=== PATIENT | female | born 1950 | race Caucasian/White ===

== ENCOUNTER → 2018-08-13 | Outpatient (CLI) | payer MEDICARE, OTHER ==
[2018-08-13 11:05] LABS: Anion Gap 8.5 mmol/L (4.00-12.00); Calcium 10.1 mg/dL (8.7-10.3); Carbon Dioxide 28.5 mmol/L (21.6-31.8); LDL Cholesterol,Calculated 191.8 mg/dL (0.0-131.0); Potassium 4.2 mmol/L (3.5-5.5); VLDL Calculation 26.2 mg/dL (5.00-40.00)
[2018-08-13 13:16] LABS: Hemoglobin A1C 5.6 % (4.0-6.0)
== END ==
LOC: LABWHC1 07:06
PROVIDERS: ATTEND Nurse Practitioner Adult Health
DX: I10 Essential (primary) hypertension (principal); E78.5 Hyperlipidemia, unspecified; E03.9 Hypothyroidism, unspecified; Z79.899 Other long term (current) drug therapy
CPT/HCPCS: 36415; 80048; 80061; 83036; 84443

== ENCOUNTER → 2020-10-04 | Outpatient (CLI) | payer MEDICARE ==
--- NOTE | 2020-10-05 13:34 | MM ---
Reason for exam: screening (asymptomatic). Last mammogram was performed 10 years and 10 months ago. History: Patient is postmenopausal and is nulliparous. Took hormonal contraceptives for 15 years. Physical Findings: A clinical breast exam by your physician is recommended on an annual basis and results should be correlated with mammographic findings. MG Screening Mammo w CAD Bilateral CC and MLO view(s) were taken. Prior study comparison: December 02, 2009, mammogram. There are scattered fibroglandular densities. Finding #1: There is a 2 mm equal density (isodense), circumscribed oval mass in the upper outer quadrant, posterior position of the right breast. Finding #2: There are typically benign calcifications in both breasts. ASSESSMENT: Incomplete: need additional imaging evaluation, BI-RAD 0 RECOMMENDATION: Ultrasound of the right breast. [facility] will attempt to contact patient to return for ultrasound.
== END | disposition home or self-care (01) ==
LOC: RADMAMWWP 09:01
PROVIDERS: ATTEND Internal Medicine
DX: Z12.31 Encounter for screening mammogram for malignant neoplasm of breast (principal)
CPT/HCPCS: 77067

== ENCOUNTER 2020-10-06 05:58 | Day surgery (SDC) | payer MEDICARE ==
[2020-10-03 15:44] VITALS: BMI 36.9
[~2020-10-06 05:58] MED LIST: DEXAMETHASONE SOD PHOSPHATE 4 MG/ML 1 ML VIAL IV ONE; HYDROmorphone 0.5 MG/0.5 ML SYRINGE IVP PRN; LACTATED RINGERS 1,000 ML IV SCH; LIDOCAINE 1% (10MG/ML) FOR IV START INTRADERMA PRN; MIDAZOLAM 2 MG/2 ML VIAL IV PRN; ONDANSETRON 4 MG/2 ML VIAL IVP ONE; fentaNYL (PF) 50 MCG/ML 2 ML AMP IVP PRN
[2020-10-06] MEDS ORDERED: PHENYLEPHRINE-0.9% NACL SYG 1,000 MCG/10 ML SYRINGE ONE (07:24)
[2020-10-06] MEDS ORDERED: MIDAZOLAM 2 MG/2 ML VIAL ONE (07:24)
[2020-10-06] MEDS ORDERED: ROPIVACAINE 5 MG/ML 30 ML VIAL ONE (07:24)
[2020-10-06] MEDS ORDERED: DEXAMETHASONE SOD PHOSPHATE 4 MG/ML 1 ML VIAL ONE (07:24)
[2020-10-06] MEDS ORDERED: fentaNYL (PF) 50 MCG/ML 2 ML AMP ONE (07:24)
[2020-10-06] MEDS ORDERED: SUCCINYLCHOLINE CHLORIDE 100 MG/5 ML SYR IV ONE (07:24)
[2020-10-06] MEDS ORDERED: PROPOFOL 10 MG/ML 20 ML VIAL IV ONE (07:24)
[2020-10-06] MEDS ORDERED: LIDOCAINE 1% INJ 10MG/ML (20 ML MDV) ONE (07:24)
[2020-10-06] MEDS ORDERED: ROCURONIUM 10 MG/ML (5 ML VIAL) IV ONE (07:24)
--- NOTE | 2020-10-06 08:56 | P.ANPRN ---
Procedure Note - Anesthesia - Nerve Block Performed Left Popliteal Single Time Out Performed: Yes Date of Procedure: 10/06/20 Procedure Start Time: 06:51 Procedure Stop Time: 06:55 Location of Patient: PreOp Indication: Acute Post-Operative Pain, Requested by Surgeon Sedation Type: Sedate with meaningful contact maintained Preparation: Sterile Prep Position: Right Lateral Needle Types: Facet Ultrasound used to visualize needle placement: Yes Ultrasound used to observe medication spread: Yes Blood Aspirated: No Pain Paresthesia on Injection Noted: No Resistance on Injection: Normal Image Stored and Saved: Yes Events: Uneventful and Well Tolerated (ropi .5% 20cc plus dexamethasone 4mg)
--- NOTE | 2020-10-06 08:58 | P.ANPRN ---
Procedure Note - Anesthesia - Nerve Block Performed Left Saphenous/Obturator Single Time Out Performed: Yes Date of Procedure: 10/06/20 Procedure Start Time: 06:56 Procedure Stop Time: 07:01 Location of Patient: PreOp Indication: Acute Post-Operative Pain, Requested by Surgeon Sedation Type: Sedate with meaningful contact maintained Preparation: Sterile Prep Position: Supine Needle Types: Pajunk (ropi .5% 20 cc plus dexamethasone 4mg)
[2020-10-06 09:09] VITALS: TEMP 96.8
--- NOTE | 2020-10-06 09:12 | P.OP ---
Preoperative Diagnosis: 1. Left Achilles tendinitis 2. Gastroc equinus left leg 3. Calcaneal spur left Postoperative Diagnosis: 1. Same 2. Same 3. Same Procedure(s) Performed: 1. Secondary repair with reattachment of the left Achilles tendon 2. Gastroc recession left leg 3. Excision of calcaneal spur left Implants: (4) 4.75 swivel lock anchors Anesthesia: REUBENA Surgeon: Lauro Martinez Estimated Blood Loss (ml): 2 Pathology: none sent Condition: stable Disposition: PACU Indications for Procedure: Achilles tendinitis with insertional calcification unresponsive to conservative therapy Description of Procedure: Patient was brought into the operative room. The patient was induced and placed under general anesthetic. The patient was then placed onto the operating room table in the prone position, with appropriate padding a below-knee bony prominences as well as in the thoracic area. When anesthesia was satisfied with position of the patient, a well-padded tourniquet was placed on the left thigh. Left leg was prepped and draped usual manner. The left leg was exsanguinated with an Esmarch bandage and the tourniquet inflated to 250 mmHg while the knee was held slightly flexed. Attention directed first to the posterior aspect leg just distal to the gastroc muscle belly. Midline incision was made and deepened down to the subcutaneous tissue careful to identify voiding retract the neurovascular structures and cauterize any bleeding vessels. Dissection was continued bluntly down to level of the deep fascia overlying the gastroc aponeurosis. The fascia was incised and bluntly freed from the underlying aponeurosis both medial and lateral. A transverse incision was made to the aponeurosis taking care to minimize trauma to underlying muscle belly. Once completed ankle was dorsiflexed and a 2 cm gap but developed between the ends of the aponeurosis indicate a full release. The wound is irrigated thoroughly with antibiotic saline. Subcu is closed with 3-0 Monocryl skin closure with bridget. Attention then directed over the posterior aspect of the Achilles tendon near the calcaneal insertion a linear incision was made along the medial aspect of the tendon was deepened on the saphenous tissue careful to identify voiding retract any neurovascular structures and cauterize any bleeding vessels. Blunt dissection was continued down to the tendon which point the skin and subcutaneous layer was dissected a full layer of the tendon to expose the attachment. The Achilles was released from the attachment. Full gold layer the calcaneus and retracted proximally osteotome was used to remove the large posterior calcaneal exostosis to the area was flat and there was exposed medullary bone. There was palpated to make sure that the entire exostosis was removed and then all the areas were smoothed with a rasp. The tendon was grasped and with the ankle held at 90 was distracted distally to the attachment point the calcaneus which point a emmanuelle was made at the distal edge of the Achilles onto the calcaneus. Drill holes were then made medial lateral both distal and proximal to the line parsley 1 cm from the line. Once drilling was completed each hole was tapped. An Arthrex 4.75 swivel lock anchor was inserted to the proximal drill holes first and advanced to proper depth. While holding the tendon near the reference line in the ankle in 90 the suture attached the 4.75 anchor was then fed through the Achilles tendon at the same level. [place] were cut so that there were 4 suture arms. Utilizing one suture from each anchor fed through another 7.5 swivel lock and then aligned with the distal drill holes and impacted into the holes and advanced to lock the suture in place and locked the tendon down. This was repeated on the opposite side. Once complete the construct was tested for strength and taken through range of motion and there was no abnormal movement at the attachment site. Wound was then irrigated with antibiotic saline. Subcutaneous closure was done with 4-0 Monocryl and skin closure done with bridget An Arthrex jumpstart dressing was applied over both incisions and a bulky dry dressings applied to the left leg and ankle. The tourniquet was released and capillary refill return to all digits of the left foot. The patient was placed in a well-padded, well molded, plaster posterior mold sugar tong splint which was Lunder dry while holding the ankle at 90. Once dry the patient was rolled back onto the transfer table at which point anesthesia was reversed. The patient was taken recovery with vital signs stable
[2020-10-06] MEDS ORDERED: LACTATED RINGERS 1,000 ML IV ONE (09:32)
[2020-10-06 10:18] VITALS: BP 138/79; PULSE 67; RESP 18
== END 2020-10-06 10:48 | disposition home or self-care (01) ==
LOC: OR 05:58
PROVIDERS: ATTEND Podiatrist
DX: M76.62 Achilles tendinitis, left leg (principal); M21.862 Other specified acquired deformities of left lower leg; M77.32 Calcaneal spur, left foot; I10 Essential (primary) hypertension; E78.5 Hyperlipidemia, unspecified; E03.9 Hypothyroidism, unspecified; E66.9 Obesity, unspecified; E78.00 Pure hypercholesterolemia, unspecified; R26.81 Unsteadiness on feet; Z79.82 Long term (current) use of aspirin; Z79.890 Hormone replacement therapy; Z79.899 Other long term (current) drug therapy; Z97.3 Presence of spectacles and contact lenses; Z98.890 Other specified postprocedural states; Z90.89 Acquired absence of other organs; Z90.49 Acquired absence of other specified parts of digestive tract; Z68.36 Body mass index [BMI] 36.0-36.9, adult; Z79.1 Long term (current) use of non-steroidal anti-inflammatories (NSAID); Z79.52 Long term (current) use of systemic steroids; Z83.3 Family history of diabetes mellitus; Z82.49 Family history of ischemic heart disease and other diseases of the circulatory system
CPT/HCPCS: 27654; 27687; 28119; 64447; 64445; 76942; C1713; J2250; J1100; J0690; J2405; J2001; J3010; J2795; J2370; J0330; J2704; 64450

== ENCOUNTER → 2020-10-27 | Outpatient (CLI) | payer MEDICARE ==
--- NOTE | 2020-10-30 08:23 | USB ---
Reason for exam: additional evaluation requested from abnormal screening. History: Patient is postmenopausal and is nulliparous. Took hormonal contraceptives for 15 years. Physical Findings: Nurse did not find any significant physical abnormalities on exam. US Breast Workup Limited RT Right limited breast ultrasound including focal area of concern, retroareolar and axilla demonstrates duct ectasia at 11 o'clock and a 1.8 x 1.4 x 0.7cm lymph node at the axilla. Scanned 9-12 o'clock. These results were verbally communicated with the patient and result sheet given to the patient on 10/27/20. ASSESSMENT: Probably benign, BI-RAD 3 RECOMMENDATION: Follow-up diagnostic mammogram of the right breast in 6 months.
== END | disposition home or self-care (01) ==
LOC: RADUSWWP 14:53
PROVIDERS: ATTEND Internal Medicine
DX: Z78.0 Asymptomatic menopausal state (principal)

== ENCOUNTER → 2021-04-03 | Outpatient (CLI) | payer MEDICARE ==
--- NOTE | 2021-04-03 13:40 | XR ---
EXAMINATION TYPE: XR knee complete RT DATE OF EXAM: 04/03/2021 CLINICAL HISTORY: Pain. Popping injury. TECHNIQUE: Three views of the right knee are obtained. COMPARISON: None. FINDINGS: There is no acute fracture/dislocation evident in right knee. Moderate narrowing and spurr ing medial tibial femoral compartment. Qmtzuadi-[id number] narrowing and spurring patellofemoral montez rtment. Additional spur anterior superior patellar distal quadriceps tendon attachment. The overlying soft tissue appears unremarkable. IMPRESSION: As above.
== END | disposition home or self-care (01) ==
LOC: RADXRMAIN 13:10
PROVIDERS: ATTEND Nurse Practitioner Adult Health
DX: M25.561 Pain in right knee (principal)

== ENCOUNTER → 2022-01-30 | Outpatient (CLI) | payer MEDICARE ==
--- NOTE | 2022-01-31 08:51 | MM ---
Reason for Exam: Screening (asymptomatic). Last mammogram was performed 1 year(s) and 4 month(s) ago. Patient History: Menarche at age 15. Patient has no children. Postmenopausal. Patient used Hormonal Contraceptives for 15 years. Risk Values: Stephany 5 year model risk: 1.9%. NCI Lifetime model risk: 5.9%. Prior Study Comparison: 12/02/2009 Screening Mammogram, Unknown. 10/04/2020 Bilateral Screening Mammogram, [facility]. 10/27/2020 Right Diagnostic Ultrasound, [facility]. Tissue Density: There are scattered fibroglandular densities. Findings: Analyzed By CAD. There is no suspicious group of microcalcifications or new suspicious mass in either breast. Overall Assessment: Negative, BI-RAD 1 Management: Screening Mammogram of both breasts in 1 year. A clinical breast exam by your physician is recommended on an annual basis and results should be correlated with mammographic findings. Electronically signed and approved by: Juan Carlos Farmer M.D. Radiologis
== END | disposition home or self-care (01) ==
LOC: RADMAMWWP 07:36
PROVIDERS: ATTEND Family Medicine
DX: Z12.31 Encounter for screening mammogram for malignant neoplasm of breast (principal); Z78.0 Asymptomatic menopausal state
CPT/HCPCS: 77067

== ENCOUNTER → 2022-07-23 | Outpatient (CLI) | payer MEDICARE ==
[2022-07-23 09:13] LABS: INR 0.9 (<1.2); Partial Thromboplastin Time 23.9 sec (22.0-30.0); Prothrombin Time 9.9 sec (9.0-12.0)
[2022-07-23 14:28] LABS: Basophils # (A) 0.05 X 10*3/uL (0.00-0.10); Basophils % (A) 0.8 %; Eosinophils # (A) 0.25 X 10*3/uL (0.04-0.35); Eosinophils % (A) 3.8 %; HCT 41.3 % (37.2-46.3); HGB 13.3 g/dL (12.0-15.0); Immature Grans, Automated 0.2 %; Lymphocytes % (A) 30.3 %; MCH 31.3 pg (27.0-32.0); MCHC 32.2 g/dL (32.0-37.0); MCV 97.2 fL (80.0-97.0); Mean Platelet Volume 11.4 fL (9.5-12.2); Monocytes # (A) 0.49 X 10*3/uL (0.20-1.00); Monocytes % (A) 7.4 %; NRBC Per 100 WBC 0 /100 WBCS (0.0-0.0); Neutrophils # (A) 3.79 X 10*3/uL (1.80-7.70); Neutrophils % (A) 57.5 %; Platelet Count 217 X 10*3/uL (140-440); RBC 4.25 X 10*6/uL (4.10-5.20); WBC 6.59 X 10*3/uL (4.50-10.00)
[2022-07-23 14:44] LABS: African American GFR (CKD) 87.2 (60.0-200.0); Anion Gap 12.8 mmol/L (10.00-18.00); BUN/Creat Ratio 22.63 Ratio (12.00-20.00); Blood Urea Nitrogen 18.1 mg/dL (9.0-27.0); Calcium 10.7 mg/dL (8.7-10.3); Carbon Dioxide 26.2 mmol/L (20.0-27.5); Non-African American GFR(CKD) 75.2 (60.0-200.0); Potassium 4.4 mmol/L (3.5-5.5)
== END | disposition home or self-care (01) ==
LOC: LABPAT 08:08
PROVIDERS: ATTEND Orthopaedic Surgery
DX: Z01.812 Encounter for preprocedural laboratory examination (principal); Z22.322 Carrier or suspected carrier of Methicillin resistant Staphylococcus aureus; M17.12 Unilateral primary osteoarthritis, left knee
CPT/HCPCS: 80048; 85025; 85610; 85730; 87070; 93005

== ENCOUNTER 2022-08-06 08:17 | Day surgery (SDC) | payer MEDICARE ==
[2022-08-01 12:06] VITALS: BMI 36.6
--- NOTE | 2022-08-05 08:38 | P.HPOR ---
History of Present Illness H&P Date: 08/05/22 Chief Complaint: Left knee pain Patient is a 71-year-old retired female who presents with progressive left knee pain for the past several years worsening recently. She's having pain with weightbearing activities. She does stiffness and swelling. She's tried medications along with injections without much relief. She notes daily pain that limits her. She has also been working on weight loss. Review of Systems As per HPI Past Medical History Past Medical History: Hyperlipidemia, Hypertension, Osteoarthritis (OA), Thyroid Disorder History of Any Multi-Drug Resistant Organisms: None Reported Past Surgical History: Cholecystectomy, Orthopedic Surgery, Tonsillectomy Additional Past Surgical History / Comment(s): left knee arthroscopy, left ankle, COLONOSCOPY, Past Anesthesia/Blood Transfusion Reactions: No Reported Reaction Smoking Status: Never smoker - Past Family History Mother Family Medical History: Cancer Father Family Medical History: Cancer Medications and Allergies Home Medications Medication Instructions Recorded Confirmed Type Aspirin [Adult Low Dose Aspirin EC] 81 mg PO DAILY 10/03/20 08/01/22 History Atorvastatin [Lipitor] 40 mg PO DAILY 10/03/20 08/01/22 History Levothyroxine Sodium [Synthroid] 100 mcg PO DAILY 10/03/20 08/01/22 History Lisinopril-Hctz 20-12.5 mg 1 tab PO DAILY 10/03/20 08/01/22 History [Zestoretic 20-12.5] Multivitamins, Thera [Multivitamin 1 tab PO DAILY 10/03/20 08/01/22 History (formulary)] Ergocalciferol [Vitamin D2 (1250 1,250 mcg PO MO 08/01/22 08/01/22 History Mcg = 08895 Iu)] Naproxen Sodium [Aleve] 220 mg PO DAILY 08/01/22 08/01/22 History Nebivolol HCl 10 mg PO HS 08/01/22 08/01/22 History Allergies Allergy/AdvReac Type Severity Reaction Status Date / Time No Known Allergies Allergy Verified 08/01/22 11:49 Physical Examination - Knee left Appearance: effusion Effusion grade: grade 1 Varus alignment in stance: 5 degrees Tenderness with palpation: medial Pain: with flexion Gait: limping ROM: extension: -10 degrees ROM: flexion: 80 degrees Crepitus with motion: Yes Strength: extension: 5/5 Strength: flexion: 5/5 Meniscal tests: medial meniscal tests: positive, medial joint line pain: positive Results The patient is a well-developed well-nourished female approximately 5 foot 9, 250 pounds endomorphic habitus. HEENT exam is nonfocal, neck supple. She has painless passive motion of her left hip. Straight leg raise is negative. Her distal neurovascular appears intact in left lower extremity. - Diagnostic results Knee x-ray: image reviewed (3 views of the left knee obtain the office show severe medial compartment narrowing with [id number]-ol-[id number] changes and subchondral sclerosis.) Assessment and Plan Assessment: Left knee severe medial and patellofemoral compartment osteoarthrosis Plan: I talked with the patient length regarding her condition along with treatment options. At this point she remains quite limited because of pain related to her osteoarthrosis despite previous conservative measures. After thorough discussion she has proceed with surgery. We will plan to proceed with left total knee arthroplasty. Risks and benefits were discussed at length in layman's terms. We will institute DVT prophylaxis postoperatively.
[~2022-08-06 08:17] MED LIST changes: +ACETAMINOPHEN TAB 500 MG TAB PO PRN; -LACTATED RINGERS 1,000 ML IV SCH; +MELOXICAM 7.5 MG TAB PO PRN; +TRANEXAMIC ACID IN NACL,ISO-OS 1,000 MG in SALINE 1 100ML.BAG IVPB PRN; -fentaNYL (PF) 50 MCG/ML 2 ML AMP IVP PRN
[2022-08-06] MEDS: LACTATED RINGERS 1,000 ML IV SCH (09:00)
[2022-08-06] MEDS ORDERED: fentaNYL (PF) 50 MCG/1 ML VIAL IVP ONE (09:08)
[2022-08-06] MEDS ORDERED: ROPIVACAINE 0.2%-NS ON-Q PUMP 1,090 MG, EMPTY PAIN BALL 1 EACH MISCELLANE PRN (09:35)
--- NOTE | 2022-08-06 09:37 | P.ANPRN ---
Procedure Note - Anesthesia - Nerve Block Performed Left Adductor Canal Infusion Time Out Performed: Yes Date of Procedure: 08/06/22 Procedure Start Time: :07 Procedure Stop Time: 09:16 Location of Patient: PreOp Indication: Requested by Surgeon Specifically requested for management of pain by DrStephy: Iglesia Lisa Sedation Type: Sedate with meaningful contact maintained Preparation: Sterile Prep, Sterile Dressing Position: Supine Catheter: Indwelling Needle Types: Pajunk Needle Gauge: 18 Ultrasound used to visualize needle placement: Yes Ultrasound used to observe medication spread: Yes Injectate: 0.5% Ropivacaine (see comment for volume) (15 ml + 15 ml NS) Blood Aspirated: No Pain Paresthesia on Injection Noted: No Resistance on Injection: Normal Image Stored and Saved: Yes Events: Uneventful and Well Tolerated
--- NOTE | 2022-08-06 09:39 | P.ANPRN ---
Procedure Note - Anesthesia - Nerve Block Performed Left iPack Single Time Out Performed: Yes Date of Procedure: 08/06/22 Procedure Start Time: : Procedure Stop Time: : Location of Patient: PreOp Indication: Requested by Surgeon Specifically requested for management of pain by DrStephy: Iglesia Lisa Sedation Type: Sedate with meaningful contact maintained Preparation: Sterile Prep Position: Right Lateral Needle Types: Pajunk Needle Gauge: 20, 21 Ultrasound used to visualize needle placement: Yes Ultrasound used to observe medication spread: Yes Injectate: 0.5% Ropivacaine (see comment for volume) (15 ml + 15 ml NS + 4 mg Dexamethasone) Blood Aspirated: No Pain Paresthesia on Injection Noted: No Resistance on Injection: Normal Image Stored and Saved: Yes Events: Uneventful and Well Tolerated
[2022-08-06] MEDS ORDERED: DEXAMETHASONE SOD PHOSPHATE 4 MG/ML 1 ML VIAL ONE (10:10)
[2022-08-06] MEDS ORDERED: TRANEXAMIC ACID IN NACL,ISO-OS 1,000 MG/100 ML BAG ONE (10:10)
[2022-08-06] MEDS ORDERED: MIDAZOLAM 2 MG/2 ML VIAL ONE (10:10)
[2022-08-06] MEDS ORDERED: ROPIVACAINE 5 MG/ML 30 ML VIAL ONE (10:10)
[2022-08-06] MEDS ORDERED: LIDOCAINE 2% INJ 20 MG/ML (2 ML VIAL) ONE (10:10)
[2022-08-06] MEDS ORDERED: SODIUM CHLORIDE 0.9% (PF) 10 ML VIAL ONE (10:10)
[2022-08-06] MEDS ORDERED: fentaNYL (PF) 50 MCG/ML 2 ML AMP ONE (10:10)
[2022-08-06] MEDS ORDERED: ePHEDrine 50 MG/ML 1 ML VIAL ONE (10:10)
[2022-08-06] MEDS ORDERED: PROPOFOL 10 MG/ML 20 ML VIAL IV ONE (10:10)
[2022-08-06] MEDS ORDERED: LACTATED RINGERS 1,000 ML IV ONE (11:57)
[2022-08-06] MEDS ORDERED: HYDROmorphone 0.5 MG/0.5 ML SYRINGE IVP PRN ×2 (11:58)
[2022-08-06] MEDS ORDERED: NALOXONE 0.4 MG/ML 1 ML VIAL IV PRN (11:58)
[2022-08-06] MEDS ORDERED: HYDROcodone/APAP 5-325MG 1 EACH TAB PO PRN (11:58)
[2022-08-06] MEDS ORDERED: MAGNESIUM HYDROXIDE 2,400 MG/10 ML CUP PO PRN (11:58)
--- NOTE | 2022-08-06 12:24 | P.OP ---
Date of Procedure: 08/06/22 Preoperative Diagnosis: Left knee severe tricompartmental osteoarthrosis Postoperative Diagnosis: Same Procedure(s) Performed: Left total knee arthroplastycementedcruciate retaining Implants: [employer] journey 2 size 5 cemented femoral component, size 4 cemented tibial component, 9 mm articular surface, 32 mm cemented patellar component. This is a cruciate retaining implant. Anesthesia: [facility] Surgeon: Iglesia Lisa Director Of Institutional Research #1: Osvaldo Perez Estimated Blood Loss (ml): 50 Pathology: other (Bone fragments) Condition: stable Disposition: PACU Indications for Procedure: The patient's a 71-year-old female who presents with progressive left knee pain secondary to osteoarthrosis despite conservative measures. A discussion of the risks and benefits of operative intervention versus continued conservative measu res was made with patient. She opted to proceed with surgery. Operative risks to include infection, neurovascular injury, development of blood clots, possible component loosening/failure need for subsequent procedures was discussed. Informed consent was obtained. Operative Findings: As below Description of Procedure: The patient was brought to the operating room, and after induction of spinal anesthesia the left lower extremity was prepped and draped in a normal fashion. The tourniquet was inflated to 270 mmHg. A longitudinal incision extending 3 finger breaths above the superior pole of the patella extending to the medial aspect the tibial tubercle was then made. The skin and subcutaneous tissues were divided sharply. Electrocautery was used for hemostasis. A medial parapatellar arthrotomy was then performed. The medial soft tissues to include the superficial and deep portions of the medial collateral ligament as well as the medial hamstring tendons were elevated subperiosteally. The proximal medial tibia osteophytes were carefully removed. The patella was everted. The knee was flexed. A portion of the retropatellar fat pad was excised sharply. The anterior cruciate ligament was sacrificed. A starting hole was made in the distal femur 1 cm anterior to the posterior cruciate origin. An intramedullary femoral guide was gently inserted planning on 5 valgus distal cut with 9 mm distal resection. The cutting block was pinned in place. The distal cut was then made. The posterior referencing sizing guide was utilized. 3 of external rotation was built into the system and verified off the trans- epicondylar axis and the posterior condyles. I felt size 5 was most appropriate. The cutting block was pinned in place. The anterior, posterior, and chamfer cuts were then made. The bone fragments were removed. A sulcus cut was then made with the appropriate guide. The trial size 5 femoral component was then placed and was fully seated. There was good anterior to posterior and medial to lateral fit. The distal peg holes were then drilled. The trial component was then removed. Attention was then paid towards preparing the proximal tibia. An extra medullary guide was utilized in line with the tibial shaft and second metatarsal distally. A 3 posterior slope was planned. I planned on 2 mm resection from the medial compartment. The cutting block was pinned in place. The proximal tibial cut was then made. The bone was removed in one fragment. The remnants of the medial and lateral menisci were excised the capsule junction with electrocautery. The tibia sized most appropriately at size 4. The posterior osteophytes off the distal femur were carefully removed with a curved osteotome. The trial tibial and femoral components were placed along with a 9 millimeters articular surface. I was able to obtain full flexion and extension with good stability with varus and valgus stress. After several flexion and extension cycles, the tibial rotation was marked with electrocautery in line with the medial one third of the tibial tubercle. Attention was then paid towards preparing the patella. A patella reamer was utilized taking this down to 14 mm of bone stock. A good flush cut was made. The patella sized most appropriately at 32 millimeters. The peg holes were then drilled. The trial component was placed. The knee was taken through a range of motion. I had good patellofemoral tracking with no hands technique. The trial components were then removed. The tibia was prepared in the appropriate rotation with appropriate drill and keel punch. The flexion and extension gaps were checked and felt to be symmetric. The bony surfaces were prepared with pulsatile lavage and dried. The deep tibial component was then cemented in place and was fully seated. Excess cement was removed. The femoral component was cemented in place and was fully seated. Again excess cement was removed. The trial 9 millimeters surface was then inserted in the knee was put in full extension. The patella component was cemented in place. After the cement had sufficiently hardened, the knee was again taken through a range of motion. Again there was good stability in flexion and extension with varus and valgus stress. The trial articular surface was then removed. The final articular surface was placed and was impacted. Care was taken to avoid any soft tissue interposition. Pulsatile lavage was again utilized. The tourniquet was deflated with approximately 60 minutes total tourniquet time. There was minimal drainage therefore a deep drain was not placed. The medial parapatellar arthrotomy was then closed with #2 Ethibond suture. The subcutaneous tissues were reapproximated interrupted 2- 0 Vicryl sutures. The skin was reapproximated with 3-0 subarticular strata fix suture. Skin tape and adhesive was applied. A sterile dressing was applied. The patient was then awoken from sedation and transferred to recovery room in good condition. Blood loss was estimated at 50 milliliters. No complications were incurred. Sponge and needle counts were correct at the end the case. Osvaldo LAMA assisted during the major components this case to include exposure, bone resection, and implantation.
--- NOTE | 2022-08-06 12:53 | XR ---
EXAMINATION TYPE: XR knee limited LT DATE OF EXAM: 08/06/2022 12:42 PM INDICATION: Patient age:Female; 71 years old; Reason for study: Evaluation for Postop abnormality and alignment; [facility]. COMPARISON: 08/10/2021 TECHNIQUE: The Left knee(s) was examined in frontal and lateral projections. FINDINGS: Postsurgical changes from left knee arthroplasty with distal femoral and proximal tibial components. Hardware appears intact with appropriate alignment. There is associated edema and soft ti ssue gas. No acute fracture or dislocation. IMPRESSION: Postsurgical changes from left knee arthroplasty. Hardware appears intact with appropriate alignment.
[2022-08-06] MEDS: HYDROcodone/APAP 7.5-325MG 1 EACH TAB PO PRN (17:37)
[2022-08-06 20:13] VITALS: RESP 17
[2022-08-06] MEDS ORDERED: SENNOSIDES-DOCUSATE SODIUM 1 EACH TAB PO SCH (21:00)
[2022-08-06] MEDS ORDERED: NEBIVOLOL 5 MG TAB PO SCH (21:00)
[2022-08-07] MEDS: HYDROcodone/APAP 7.5-325MG 1 EACH TAB PO PRN ×2 (05:09→11:20)
[2022-08-07] MEDS: LACTATED RINGERS 1,000 ML IV SCH (05:24)
[2022-08-07] MEDS ORDERED: LEVOTHYROXINE 100 MCG TAB PO SCH (06:30)
--- NOTE | 2022-08-07 07:06 | P.PN ---
Progress Note - Text Progress Note Date: 08/07/22 Postoperative day # 1 status post total knee arthroplasty, and adductor canal catheter placed for postoperative analgesia, currently at ropivacaine 0.2% 8 mL per hour and continuous infusion, visual analogue scale is 3/10, patient using oral pain medication for breakthrough pain. Assessment and plan= Acute postoperative pain, adductor canal catheter for pain control, pain is well controlled we'll continue the same management.
[2022-08-07 07:41] VITALS: BP 113/65; PULSE 52; TEMP 98
[2022-08-07] MEDS ORDERED: RIVAROXABAN 10 MG TAB PO SCH (09:00)
[2022-08-07] MEDS ORDERED: ATORVASTATIN 40 MG TAB PO SCH (09:00)
[2022-08-07] MEDS ORDERED: MULTIVITAMINS, THERA 1 EACH TAB PO SCH (09:00)
--- NOTE | 2022-08-07 09:41 | P.PN ---
Subjective Progress Note Date: 08/07/22 Principal diagnosis: Left knee osteoarthritis Patient seen at bedside this morning resting comfortably lying semirecumbent position with ice over her left knee. Patient says she is doing well this morning. Patient currently rates her pain is 3/10. Patient states most of the pain is located at the front of the knee. Patient denies radiation of pain. Patient says she has urinated several times since surgery yesterday. Patient says she has not had a bowel movement yet, however, patient says she has been passing gas. Patient says she is looking forward to going home today. She says she is looking forward to working with physical therapy this morning. Patient denies chest pain, fever, shortness breath, nausea, incontinuity, loss of bowel/bladder control. Objective - Vital Signs Vital signs: Vital Signs Temp 98.0 F 08/07/22 07:40 Pulse 52 L 08/07/22 08:33 Resp 17 08/07/22 08:33 BP 113/65 08/07/22 07:40 Pulse Ox 96 08/07/22 07:40 FiO2 Intake & Output 08/06/22 08/07/22 08/07/22 18:59 06:59 18:59 Intake Total 1350 340 Output Total 50 Balance 1300 340 Weight 112.5 kg Intake: IV 1350 Intake, IV Titration 340 Amount Lactated Ringers 1,000 ml 240 @ 20 mls/hr IV .Q24H [facility] Rx#:[id number] ceFAZolin 2 gm In Sodium 100 Chloride 0.9% 50 ml @ 100 mls/hr IVPB Q8H [facility] Rx#: [id number] Output: Estimated Blood Loss 50 Other: Voiding Method Toilet Toilet # Voids 1 2 - Exam Left knee: Incision is clean, dry, and intact. The exofin fusion tape is in good condition. There is minimal soft tissue swelling and ecchymosis surrounding the medial and lateral aspects of the incision. Calf is soft, no tenderness with palpation. Plantar flexion, dorsiflexion, EHL, FHL are intact. Sensory exam to light touch throughout the extremity is intact, dorsal pedis pulses 2+. Assessment and Plan Assessment: Left knee osteoarthritis - Postoperative day #1 status post left total knee arthroplasty Plan: 1. Left knee osteoarthritis - left total knee arthroplasty performed yesterday, 08/06/2022. Patient stable at bedside this morning. Plan for discharge home with health services later today pending PT evaluation. 2. Appreciate medical management 3. Pain management - [place] 4. DVT prophylaxis - Xarelto in hospital; going home with Eliquis 5. GI prophylaxis - senna 6. PT/OT - weightbearing as tolerated with walker 7. Encourage incentive spirometer use 8. Discharge planning - home with health services today Time with Patient: Less than 30
[2022-08-07 09:45] LABS: Basophils # (A) 0.02 X 10*3/uL (0.00-0.10); Basophils % (A) 0.1 %; Eosinophils # (A) 0 X 10*3/uL (0.04-0.35); Eosinophils % (A) 0 %; HCT 38.4 % (37.2-46.3); HGB 12.5 g/dL (12.0-15.0); Immature Grans, Automated 0.4 %; Lymphocytes # (A) 1.76 X 10*3/uL (0.90-5.00); Lymphocytes % (A) 12.1 %; MCH 31.6 pg (27.0-32.0); MCHC 32.6 g/dL (32.0-37.0); MCV 97.2 fL (80.0-97.0); Mean Platelet Volume 12.1 fL (9.5-12.2); Monocytes # (A) 0.91 X 10*3/uL (0.20-1.00); Monocytes % (A) 6.2 %; NRBC Per 100 WBC 0 /100 WBCS (0.0-0.0); Neutrophils # (A) 11.83 X 10*3/uL (1.80-7.70); Neutrophils % (A) 81.2 %; Platelet Count 214 X 10*3/uL (140-440); RBC 3.95 X 10*6/uL (4.10-5.20); RDW 12.8 % (11.5-14.5); WBC 14.58 X 10*3/uL (4.50-10.00)
--- NOTE | 2022-08-07 09:47 | P.DS ---
Providers Date of admission: 08/06/2022 Expected date of discharge: 08/07/22 Attending physician: Iglesia Lisa Consults: 08/06/22 11:58 Consult Physician Routine Consulting Provider: Mukund Pimentel Consult Reason/Comments: medical managements/p left total knee arthroplasty Do you want consulting provider notified?: Yes Primary care physician: Neil Hodge [facility] Course: Date of admission: 08/06/2022 Date of discharge: 08/07/2022 Admission diagnosis: Left knee osteoarthritis Discharge diagnosis: Same Attending physician: Dr. Lisa Surgical procedures: Left total knee arthroplasty Brief history: Patient is a 71-year-old female with a history of progressive primary left knee osteoarthritis. At this point patient has failed conservative treatment measures and has opted to proceed with a elective left total knee arthroplasty. Hospital course: Details of patient's surgery can be found in operative report. Patient tolerated the procedure well and was subsequently transported to orthopedic floor. Patient's orthopeidc and medical care was provided daily. Patient had daily laboratory tests performed for evaluation of overall blood counts. Patient had daily physical therapy to include strengthening range of motion as well as education with walker ambulation. Patient was treated with Xarelto for their postoperative DVT prophylaxis during their inpatient stay. Patient was noted to have a relatively uneventful postoperative course. Patient reported satisfactory pain control with oral pain medications by postoperative day 1. Patient showed satisfactory progress with physical therapy. Patient moved steadily through the program and had no difficulty meeting the goals by postoperative day 1. Given patient's otherwise satisfactory course and having met physical therapy goals, plan is to discharge patient home with health services on postoperative day 1. Discharge condition/disposition: Patient will be discharged home with health ser vices in stable condition. Discharge medications: Instructions are given on resumption of patient's normal daily medications per primary care recommendation, in addition patient will be prescribed Creede 7.5 mg/325 mg; Colace; Eliquis 2.5 mg BID x 2 weeks. Orthopedic Discharge Instructions: 1. Wound care and infection precautions, keep incision dry and covered while showering, no lotions, creams, moisturizers. No soaking, pools, hot tubs. Do not scrub over incision. 2. Weight-bear as tolerated with walker / cane until follow-up. 3. Ice and elevate when necessary. Do not exceed 20 minutes per hour with ice pack. 4. Utilize compression sleeve until seen at first follow up appointment. 5. Pain meds and anticoagulants per prescription. 6. Pain medication has potential to cause constipation. Increase oral fluid and fiber intake. Contact primary care provider if you have not had a bowel movement within 48 hours after discharge. 7. No anti-inflammatory medication until discussed at first post operative visit, this including Motrin, Aleve, Mobic, Diclofenac. 8. Follow up in office at 2 weeks postop with Rasta Rey PA-C / Osvaldo Perez PA-C 9. Follow up with your primary care doctor 7-10 days after discharge. 10. Contact [facility] with any questions, . Keep incision clean, dry, intact. While showering, cover fusion tape with Saran wrap. The fusion tape on until follow-up appointment in office in 2 weeks Medications: Creede 7.5 mg/325 mg 12 every 6 hours; Colace; Eliquis 2.5 mg BID x 2 weeks Assessment: Left knee osteoarthritis Procedures: Left total knee arthroplasty Patient Condition at Discharge: Good Plan - Discharge Summary Discharge Rx Participant: No New Discharge Prescriptions: New Apixaban [Eliquis] 2.5 mg PO BID #60 tab Docusate [Colace] 100 mg PO DAILY #30 capsule HYDROcodone/APAP 7.5-325MG [[place] 7.5] 1 - 2 each PO Q6HR PRN #36 tab PRN Reason: Pain No Action Multivitamins, Thera [Multivitamin (formulary)] 1 tab PO DAILY Lisinopril-Hctz 20-12.5 mg [Zestoretic 20-12.5] 1 tab PO DAILY Levothyroxine Sodium [Synthroid] 100 mcg PO DAILY Atorvastatin [Lipitor] 40 mg PO DAILY Aspirin [Adult Low Dose Aspirin EC] 81 mg PO DAILY Naproxen Sodium [Aleve] 220 mg PO DAILY Ergocalciferol [Vitamin D2 (1250 Mcg = 40851 Iu)] 1,250 mcg PO MO Nebivolol HCl 10 mg PO HS Discharge Medication List Aspirin [Adult Low Dose Aspirin EC] 81 mg PO DAILY 10/03/20 [History] Atorvastatin [Lipitor] 40 mg PO DAILY 10/03/20 [History] Levothyroxine Sodium [Synthroid] 100 mcg PO DAILY 10/03/20 [History] Lisinopril-Hctz 20-12.5 mg [Zestoretic 20-12.5] 1 tab PO DAILY 10/03/20 [History] Multivitamins, Thera [Multivitamin (formulary)] 1 tab PO DAILY 10/03/20 [History] Ergocalciferol [Vitamin D2 (1250 Mcg = 96404 Iu)] 1,250 mcg PO MO 08/01/22 [History] Naproxen Sodium [Aleve] 220 mg PO DAILY 08/01/22 [History] Nebivolol HCl 10 mg PO HS 08/01/22 [History] Apixaban [Eliquis] 2.5 mg PO BID #60 tab 08/07/22 [Rx] Docusate [Colace] 100 mg PO DAILY #30 capsule 08/07/22 [Rx] HYDROcodone/APAP 7.5-325MG [[place] 7.5] 1 - 2 each PO Q6HR PRN #36 tab 08/07/22 [Rx] Follow up Appointment(s)/Referral(s): Osvaldo Perez PAC [PHYSICIAN INTRUSION ANALYST] - 2 Weeks Patient Instructions/Handouts: Knee Replacement (DC) Activity/Diet/Wound Care/Special Instructions: Orthopedic Discharge Instructions: 1. Wound care and infection precautions, keep incision dry and covered while showering, no lotions, creams, moisturizers. No soaking, pools, hot tubs. Do not scrub over incision. 2. Weight-bear as tolerated with walker / cane until follow-up. 3. Ice and elevate when necessary. Do not exceed 20 minutes per hour with ice pack. 4. Utilize compression sleeve until seen at first follow up appointment. 5. Pain meds and anticoagulants per prescription. 6. Pain medication has potential to cause constipation. Increase oral fluid and fiber intake. Contact primary care provider if you have not had a bowel movement within 48 hours after discharge. 7. No anti-inflammatory medication until discussed at first post operative visit, this including Motrin, Aleve, Mobic, Diclofenac. 8. Follow up in office at 2 weeks postop with Rasta Rey PA-C / Osvaldo Perez PA-C 9. Follow up with your primary care doctor 7-10 days after discharge. 10. Contact [facility] with any questions, . Keep incision clean, dry, intact. While showering, cover fusion tape with Saran wrap. The fusion tape on until follow-up appointment in office in 2 weeks Medications: Creede 7.5 mg/325 mg 12 every 6 hours; Colace; Eliquis 2.5 mg BID x 2 weeks Discharge Disposition: HOME WITH HOME HEALTH SERVICES
[2022-08-07 10:03] LABS: African American GFR (CKD) 75.6 (60.0-200.0); Albumin 4.4 g/dL (3.8-4.9); Albumin/Globulin Ratio 2.1 (1.60-3.17); Anion Gap 13.4 mmol/L (10.00-18.00); BUN/Creat Ratio 15.67 Ratio (12.00-20.00); Blood Urea Nitrogen 14.1 mg/dL (9.0-27.0); Calcium 10.3 mg/dL (8.7-10.3); Carbon Dioxide 22.6 mmol/L (20.0-27.5); Globulin 2.1 g/dL (1.6-3.3); Non-African American GFR(CKD) 65.2 (60.0-200.0); Potassium 4.1 mmol/L (3.5-5.5); Total Bilirubin 0.8 mg/dL (0.30-1.20); Total Protein 6.5 g/dL (6.2-8.2)
--- NOTE | 2022-08-07 15:24 | P.CONS ---
History of Present Illness - Reason for Consult Consult date: 08/07/22 - History of Present Illness This is a 71 year old female who follows with Dr. Neil Hodge, medical history of hypertension, hyperlipidemia, osteoarthritis, thyroid disorder. Patient is evaluated today postoperative day #1 total left knee arthroplasty with Dr. Lisa. Reports controlled pain, no shortness of breath, no chest pain. Patient states she was having issues with preoperative hypertension and had been started on nebivolol outpatient and had noted a heart rate at home in the 40s and was feeling fatigued. Currently bradycardic heart rate in the 50s, blood pressure 113/65, on room air with oxygen saturation of 96%, has remained afebrile. Continues on home dose of levothyroxine and TSH is within normal limi ts. Recommend at this time to hold lisinopril/hydrochlorothiazide combination at this time to avoid postoperative hypotension. Nebivolol will also be held at this time. Discussed in extent with patient to hold both of these medications on discharge and can resume only the zestoretic if her blood pressure becomes elevated. REVIEW OF SYSTEMS: CONSTITUTIONAL: No fever, no malaise, no fatigue. HEENT: No recent visual problems or hearing problems. Denied any sore throat. CARDIOVASCULAR: No chest pain, orthopnea, PND, no palpitations, no syncope. PULMONARY: No shortness of breath, no cough, no hemoptysis. GASTROINTESTINAL: No diarrhea, no nausea, no vomiting, no abdominal pain. NEUROLOGICAL: No headaches, no weakness, no numbness. HEMATOLOGICAL: Denies any bleeding or petechiae. GENITOURINARY: Denies any burning micturition, frequency, or urgency. MUSCULOSKELETAL/RHEUMATOLOGICAL: Denies any joint pain, swelling, Reports no pain to left knee. ENDOCRINE: Denies any polyuria or polydipsia. The rest of the 14-point review of systems is negative. PHYSICAL EXAMINATION: GENERAL: The patient is alert and oriented x3, not in any acute distress. Well developed, well nourished. HEENT: Pupils are round and equally reacting to light. EOMI. No scleral icterus. No conjunctival pallor. Normocephalic, atraumatic. No pharyngeal erythema. No thyromegaly. CARDIOVASCULAR: S1 and S2 present. No murmurs, rubs, or gallops. Sinus bradycardia. PULMONARY: Chest is clear to auscultation, no wheezing or crackles. ABDOMEN: Soft, nontender, nondistended, normoactive bowel sounds. No palpable organomegaly. MUSCULOSKELETAL: No joint swelling or deformity. Post surgical left knee dressing intact. EXTREMITIES: No cyanosis, clubbing, or pedal edema. NEUROLOGICAL: Gross neurological examination did not reveal any focal deficits. SKIN: No rashes. Assessment and plan Osteoarthritis postoperative day #1 Total left knee arthroplasty Sinus bradycardia which nebivolol will be held at this time Hypertension currently normotensive and will held lisinopril/hydrochlorothiaze combination to avoid postoperative hypotension History hyperlipidemia resumed on statin Hypothyroidism continues on levothyroxine Obesity GI prophylaxis DVT prophylaxis on xarelto as per primary Do Not Resuscitate/Do Not Intubate Thank you for this consultation Patient is cleared medically for Discharge home when cleared by primary The impression and plan of care has been dictated by Lisbet Rodas Nurse Practitioner as directed. Dr. Margarito MD I have performed a history and physical examination and medical decision making of this patient, discussed the same with the dictator, and agree with the dictators assessment and plan as written, documented as a scribe. Based on total visit time, I have performed more than 50% of this visit. Past Medical History Past Medical History: Hyperlipidemia, Hypertension, Osteoarthritis (OA), Thyroid Disorder History of Any Multi-Drug Resistant Organisms: None Reported Past Surgical History: Cholecystectomy, Orthopedic Surgery, Tonsillectomy Additional Past Surgical History / Comment(s): left knee arthroscopy, left ankle, COLONOSCOPY, Past Anesthesia/Blood Transfusion Reactions: No Reported Reaction Past Psychological History: No Psychological Hx Reported Smoking Status: Never smoker Past Alcohol Use History: Rare Past Drug Use History: None Reported - Past Family History Mother Family Medical History: Cancer Father Family Medical History: Cancer Medications and Allergies Home Medications Medication Instructions Recorded Confirmed Type Atorvastatin [Lipitor] 40 mg PO DAILY 10/03/20 08/06/22 History Levothyroxine Sodium [Synthroid] 100 mcg PO DAILY 10/03/20 08/06/22 History Multivitamins, Thera [Multivitamin 1 tab PO DAILY 10/03/20 08/06/22 History (formulary)] Ergocalciferol [Vitamin D2 (1250 1,250 mcg PO MO 08/01/22 08/06/22 History Mcg = 56517 Iu)] Apixaban [Eliquis] 2.5 mg PO BID #60 tab 08/07/22 Rx Docusate [Colace] 100 mg PO DAILY #30 capsule 08/07/22 Rx HYDROcodone/APAP 7.5-325MG [[place] 1 - 2 each PO Q6HR PRN #36 tab 08/07/22 Rx 7.5] Allergies Allergy/AdvReac Type Severity Reaction Status Date / Time No Known Allergies Allergy Verified 08/06/22 08:50 Physical Exam Vitals: Vital Signs Temp Pulse Resp BP Pulse Ox 08/07/22 08:33 52 L 17 08/07/22 07:40 98.0 F 52 L 17 113/65 96 08/07/22 02:08 98.1 F 59 L 17 105/52 94 L 08/06/22 19:16 97.9 F 61 17 144/70 95 08/06/22 14:39 97.4 F L 54 L 18 135/54 99 08/06/22 14:00 59 L 16 125/60 98 08/06/22 13:30 54 L 16 123/62 98 08/06/22 13:15 58 L 16 137/63 98 08/06/22 13:00 60 16 118/69 98 08/06/22 12:45 58 L 16 113/56 97 08/06/22 12:30 61 16 115/76 97 08/06/22 12:20 97.1 F L 70 14 117/59 96 08/06/22 09:38 56 L 16 162/72 98 Intake and Output 08/06/22 08/07/22 08/07/22 22:59 06:59 14:59 Intake Total 340 Balance 340 Intake: Intake, IV Titration 340 Amount Lactated Ringers 1,000 ml 240 @ 20 mls/hr IV .Q24H [facility] Rx#:[id number] ceFAZolin 2 gm In Sodium 100 Chloride 0.9% 50 ml @ 100 mls/hr IVPB Q8H [facility] Rx#: [id number] Other: Voiding Method Toilet Toilet # Voids 1 2 Weight 112.5 kg Results CBC & Chem 7: 08/07/22 05:25 08/07/22 05:25
[2022-08-12] MEDS ORDERED: ERGOCALCIFEROL 1,250 MCG (50,000 IU) CAPSULE PO SCH (09:00)
== END 2022-08-07 14:28 | disposition home health service (06) ==
LOC: OR 08:17 → 4SSUR 12:20 → OR 08-07 14:28
PROVIDERS: ATTEND Orthopaedic Surgery
DX: M17.12 Unilateral primary osteoarthritis, left knee (principal); G89.18 Other acute postprocedural pain; E78.5 Hyperlipidemia, unspecified; I10 Essential (primary) hypertension; E07.9 Disorder of thyroid, unspecified; Z79.82 Long term (current) use of aspirin; Z90.49 Acquired absence of other specified parts of digestive tract; Z96.652 Presence of left artificial knee joint; Z79.891 Long term (current) use of opiate analgesic; Z79.899 Other long term (current) drug therapy
CPT/HCPCS: 97161; 64999; 64448; 76942; 80053; 84443; 85025; 88300; 73560; 27447; C1713 ×2; C1776; C1751; J2250; J1100; J0690 ×2; J2405; J2795; J3010